=== PATIENT | male | born 1965 | race Caucasian/White ===

== ENCOUNTER 2024-04-15 17:53 | Emergency (ER) | payer OTHER ==
[2024-04-15] MEDS ORDERED: Cyclobenzaprine 10 MG TAB ONE (18:12)
== END 2024-04-15 19:25 | disposition home or self-care (01) ==
LOC: NAV ERS 17:53
DX: S09.90XA Unspecified injury of head, initial encounter (principal); S50.12XA Contusion of left forearm, initial encounter; S80.812A Abrasion, left lower leg, initial encounter; I25.10 Atherosclerotic heart disease of native coronary artery without angina pectoris; I10 Essential (primary) hypertension; E11.9 Type 2 diabetes mellitus without complications; Z55.6 Problems related to health literacy; W17.89XA Other fall from one level to another, initial encounter; Z86.73 Personal history of transient ischemic attack (TIA), and cerebral infarction without residual deficits
CPT/HCPCS: 70450; 71045